=== PATIENT | male | born 2000 | race Caucasian/White ===

== ENCOUNTER 2023-08-13 20:17 | Emergency (ER) | payer BC ==
[2023-08-13 20:25] VITALS: TEMP 98.2; BMI 25.8
[2023-08-13 21:48] LABS: BASO % 0.8 % (0-2.0); EOS % 0.5 % (0-4.5); HEMATOCRIT 47.3 % (35.4-49); LYMPH % 32.8 % (8-40); MCH 29.6 pg (25.7-33.7); MCHC 33.9 g/dl (32.0-35.9); MEAN CELL VOLUME 87.4 fl (80-96); MEAN PLT VOLUME 7.5 fl (7.5-11.1); MONO % 10.9 % (3.8-10.2); PLATELET COUNT 258 10^3/uL (134-434); RBC 5.41 M/mm3 (4.00-5.60); RDW 13.4 % (11.9-15.9)
[2023-08-13 22:04] LABS: POTASSIUM 4.1 mmol/L (3.5-5.1)
[2023-08-13 22:06] LABS: CALCIUM 9.6 mg/dL (8.5-10.1)
[2023-08-13 22:07] LABS: ALBUMIN 4.4 g/dl (3.4-5.0); BLOOD UREA NITROGEN 7.7 mg/dL (7-18); MAGNESIUM 2.2 mg/dL (1.8-2.4)
[2023-08-13 22:12] LABS: BILIRUBIN,TOTAL 0.3 mg/dL (0.2-1); TOT PROT 7.7 g/dl (6.4-8.2)
[2023-08-13] MEDS ORDERED: hydrOXYzine PAMOATE 25 MG CAPSULE (FP) PO ONE (22:49)
[2023-08-13] MEDS: hydrOXYzine PAMOATE 25 MG CAPSULE (FP) PO ONE (22:56)
[2023-08-13 23:00] VITALS: BP 122/76; PULSE 88; RESP 18
== END 2023-08-13 23:02 | disposition home or self-care (01) ==
LOC: JER 20:17
DX: R00.2 Palpitations (principal); R07.89 Other chest pain; F41.9 Anxiety disorder, unspecified
CPT/HCPCS: 36415; 71046-TC-FY; 80053; 82550; 83735; 84439; 84443; 84484; 85025; 85379; 93005; 93010; 99285-25